=== PATIENT | female | born 1995 | race Caucasian/White ===

== ENCOUNTER 2017-03-09 19:46 | Emergency (ER) | payer OTHER ==
[~2017-03-09] VITALS: Ht 160 cm; Wt 97.5 kg
[2017-03-09 20:43] VITALS: Ht 160 cm; Wt 97.5 kg
[2017-03-09 23:21] LABS: PLATELET COUNT 274 x10^3mcL (130-400); RED CELL DISTRIBUTION WIDTH 14.3 % (11.5-14.5)
[2017-03-09 23:25] LABS: BASOPHIL % 0 % (0-2)
[2017-03-09 23:48] LABS: ALBUMIN 3.5 g/dL (3.4-5.0); ALKALINE PHOSPHATASE 67 U/L (46-116); ALT/SGPT 22 U/L (14-59); AMYLASE 59 U/L (25-115); AST/SGOT 13 U/L (15-37); CALCIUM 8.3 mg/dL (8.5-10.1); CARBON DIOXIDE 24.6 mmol/L (21-32); CHLORIDE SERUM 103 mmol/L (98-107); CREATININE SERUM 0.6 mg/dL (0.6-1.0); GFR1 > 60 mL/min; GLUCOSE SERUM 135 mg/dL (74-106); LIPASE 83 IU/L (73-393); POTASSIUM SERUM 3.5 mmol/L (3.5-5.1); SODIUM SERUM 139 mmol/L (136-145); TOTAL PROTEIN, SERUM 7.6 g/dL (6.4-8.2)
[2017-03-10 00:05] LABS: AMPHETAMINE QUAL UR NONE DETECTED (NEG <=1000)
[2017-03-10 00:13] LABS: UA SPECIFIC GRAVITY 1.015 (1.005-1.035); microscopic required? YES; urine erythrocyte NEGATIVE (NEGATIVE)
[2017-03-10 00:35] VITALS: BP 113/76
== END 2017-03-10 01:32 | disposition home or self-care (01) ==
LOC: ED 19:46
PROVIDERS: Emergency Medicine
DX: R10.13 Epigastric pain (principal); F12.90 Cannabis use, unspecified, uncomplicated
CPT/HCPCS: 83880; J2405; J3490; J7030

== ENCOUNTER 2018-05-29 10:00 | Emergency (ER) | payer OTHER ==
[~2018-05-29] VITALS: Ht 160 cm; Wt 93.4 kg
[2018-05-29 10:06] VITALS: Ht 160 cm; Wt 93.4 kg
[2018-05-29 11:35] LABS: BASOPHIL % 0.5 % (0-2); PLATELET COUNT 275 x10^3mcL (130-400); RED CELL DISTRIBUTION WIDTH 14.5 % (11.5-14.5)
[2018-05-29 12:58] LABS: UA SPECIFIC GRAVITY 1.025 (1.005-1.035); microscopic required? YES; urine erythrocyte 3+ (NEGATIVE)
[2018-05-29 13:15] VITALS: BP 114/61
== END 2018-05-29 13:15 | disposition home or self-care (01) ==
LOC: ED 10:00
PROVIDERS: Emergency Medicine
DX: O20.0 Threatened abortion (principal); N39.0 Urinary tract infection, site not specified
CPT/HCPCS: 36415; J0696

== ENCOUNTER 2019-09-02 15:08 | Emergency (ER) | payer OTHER ==
[~2019-09-02] VITALS: Ht 162.6 cm; Wt 98.9 kg
[2019-09-02 15:20] VITALS: Ht 162.6 cm; Wt 98.9 kg
[2019-09-02 16:11] VITALS: BP 118/83
== END 2019-09-02 16:11 | disposition home or self-care (01) ==
LOC: ED 15:08
DX: H60.92 Unspecified otitis externa, left ear (principal)

== ENCOUNTER 2019-09-18 06:49 | Emergency (ER) | payer OTHER ==
[~2019-09-18] VITALS: Ht 162.6 cm; Wt 99.0 kg
[2019-09-18 08:08] VITALS: BP 117/85
== END 2019-09-18 08:08 | disposition home or self-care (01) ==
LOC: ED 06:49
DX: S51.811A Laceration without foreign body of right forearm, initial encounter (principal); W22.8XXA Striking against or struck by other objects, initial encounter; Y93.89 Activity, other specified; Y92.89 Other specified places as the place of occurrence of the external cause; Y99.8 Other external cause status
CPT/HCPCS: 90715; J2001

== ENCOUNTER 2019-09-20 21:10 | Emergency (ER) | payer OTHER ==
[~2019-09-20] VITALS: Ht 162.6 cm; Wt 99.8 kg
[2019-09-20 21:16] VITALS: Ht 162.6 cm; Wt 99.8 kg
[2019-09-20 21:51] VITALS: BP 123/78
== END 2019-09-20 21:51 | disposition home or self-care (01) ==
LOC: ED 21:10
DX: S51.811D Laceration without foreign body of right forearm, subsequent encounter (principal); W22.03XD Walked into furniture, subsequent encounter

== ENCOUNTER 2019-09-30 04:35 | Emergency (ER) | payer OTHER ==
[~2019-09-30] VITALS: Ht 162.6 cm; Wt 98.9 kg
[2019-09-30 04:40] VITALS: Ht 162.6 cm; Wt 98.9 kg
[2019-09-30 05:12] VITALS: BP 135/78
== END 2019-09-30 05:12 | disposition home or self-care (01) ==
LOC: ED 04:35
DX: S51.811D Laceration without foreign body of right forearm, subsequent encounter (principal); X58.XXXD Exposure to other specified factors, subsequent encounter